=== PATIENT | male | born 1965 | race African-American/Black ===

== ENCOUNTER 2020-01-04 10:30 | Emergency (ER) | payer BC ==
[~2020-01-04] VITALS: Ht 177.8 cm; Wt 72.2 kg
[2020-01-04 11:20] LABS: CHLORIDE 112 mmol/L (98-107); MEAN CORPUSCULAR HEMOGLOBIN 32.9 pg (27.5-34.5); MEAN CORPUSCULAR HGB CONC 33.8 g/dL (33.2-36.2); MEAN CORPUSCULAR VOLUME 97.3 fL (81-97); MEAN PLATELET VOLUME 7.3 fL (7.4-10.4); PLATELET COUNT 297 x10^3/uL (130-400); RED BLOOD COUNT 4.53 x10^6/uL (4.38-5.82); RED CELL DISTRIBUTION WIDTH 13.9 % (9.4-14.8)
--- NOTE | 2020-01-04 11:22 | NUR ---
[employer]: PT WALKED FROM LOBBY TO ROOM AT THIS TIME.
--- NOTE | 2020-01-04 11:28 | NUR ---
FIRST CONTACT WITH PT. PT C/O: SEEN AT FOR LEFT FLANK PAIN, PT HAD LAB WORK YESTERDAY. LEFT FLANK PAIN CONSTANT FOR 3 WEEKS. PT DENIES URINARY SYMPTOMS. PT DENIES RADIATION. PT DENIES CONSTIPATION OR DIARRHEA. PT STATES LAYING DOWN MAKES PAIN WORSE. PT'S AOX4. RESPS EVEN AND UNLABORED. BP/SPO2 MONITORS IN PLACE. CALL LIGHT WITHIN REACH.
[2020-01-04 11:39] LABS: ALANINE AMINOTRANSFERASE 18 U/L (12-78); ALBUMIN 3.7 g/dL (3.4-5.0); ANION GAP 7 mmol/L (5-15); CALCIUM 8.3 mg/dL (8.5-10.1); CREATININE 1.46 mg/dL (0.7-1.3)
[2020-01-04 11:41] LABS: ALKALINE PHOSPHATASE 65 U/L (45-117); TOTAL PROTEIN 6.9 g/dL (6.4-8.2)
[2020-01-04 11:44] LABS: MD YES
--- NOTE | 2020-01-04 11:47 | NUR ---
pt amb to br and back to room with steady gait. ua sent.
[2020-01-04] MEDS ORDERED: KETOROLAC 30 MG/1 ML ONE (11:54)
[2020-01-04] MEDS ORDERED: KETOROLAC 30 MG/1 ML IM ONE (12:00)
--- NOTE | 2020-01-04 12:01 | NUR ---
Pt medicated for pain.
[2020-01-04 12:02] LABS: MICROSCOPIC NOT IND
[2020-01-04 12:11] LABS: EOS#(MANUAL) 0.26 x10^3/uL (0.0-0.4); EOS% (MANUAL) 4 % (1-7); LYMPH#(MANUAL) 3.19 x10^3/uL (1-3.4); LYMPHS% (MANUAL) 49 % (22-44); MONOS#(MANUAL) 0.46 x10^3/uL (0.3-2.7); MONOS% (MANUAL) 7 % (2-9); REACTIVE LYMPHS # (MANUAL) 0.13 x10^3/uL (0-0); REACTIVE LYMPHS % (MANUAL) 2 % (0-0); SEG#(MANUAL) 2.47 x10^3/uL (1.8-6.8); SEGS% (MANUAL) 38 % (42-75)
[2020-01-04 12:12] LABS: <PLATELET ESTIMATE> ADEQUATE; <PLT MORPHOLOGY> NORMAL PLT MORPH; <RBC MORPHOLOGY> NORMAL
[2020-01-04 12:14] LABS: CULTURE INDICATED? NO
[2020-01-04 12:59] VITALS: BP 140/77
--- NOTE | 2020-01-04 13:02 | NUR ---
PT RESTING IN [facility]. PT'S AOX4. RESPS EVEN AND UNLABORED.
--- NOTE | 2020-01-04 13:43 | NUR ---
Patient given discharge instructions and they have confirmed that they understand the instructions. Patient ambulatory with steady gait.
== END 2020-01-04 13:44 | disposition home or self-care (01) ==
LOC: ED 13:13
DX: M54.5 Low back pain (principal); F17.200 Nicotine dependence, unspecified, uncomplicated; R10.9 Unspecified abdominal pain
CPT/HCPCS: 36415; 74176; 80053; 81003; 85025; 96372; 99284; J1885

== ENCOUNTER 2021-04-03 21:35 | Emergency (ER) | payer BC ==
[~2021-04-03] VITALS: Ht 177.8 cm; Wt 80.7 kg
[2021-04-03 21:45] VITALS: BP 145/82
[2021-04-03] MEDS ORDERED: PROCHLORPERAZINE 5 MG/ML, 2ML ONE (22:12)
[2021-04-03] MEDS ORDERED: KETOROLAC 30 MG/1 ML ONE (22:13)
--- NOTE | 2021-04-03 22:22 | NUR ---
CHEST PAIN AND YANEZ. CHEST PAIN RADIATES TO LEFT ARM AND CAUSES TINGLING, STARTED AT WORK TODAY WHILE SITTING. NO CARDIAC HX. YANEZ PRESENT [id number]
[2021-04-03] MEDS ORDERED: PROCHLORPERAZINE 5 MG/ML, 2ML IM ONE (22:30)
[2021-04-03] MEDS ORDERED: KETOROLAC 30 MG/1 ML IM ONE (22:30)
[2021-04-03 22:33] LABS: BASOPHILS % (AUTO) 1 % (0-1); EOSINOPHILS % (AUTO) 1 % (1-7); LYMPHOCYTES % (AUTO) 49 % (22-44); MEAN CORPUSCULAR HEMOGLOBIN 32.5 pg (27.5-34.5); MEAN CORPUSCULAR HGB CONC 34.1 g/dL (33.2-36.2); MEAN PLATELET VOLUME 7.1 fL (7.4-10.4); MONOCYTES % (AUTO) 7 % (2-9); NEUTROPHILS % (AUTO) 42 % (42-75); PLATELET COUNT 297 x10^3/uL (130-400); RED BLOOD COUNT 4.43 x10^6/uL (4.38-5.82); RED CELL DISTRIBUTION WIDTH 13.5 % (9.4-14.8)
[2021-04-03 22:43] LABS: ALBUMIN 3.9 g/dL (3.4-5.0); ANION GAP 6 mmol/L (5-15); CALCIUM 8.6 mg/dL (8.5-10.1); CHLORIDE 109 mmol/L (98-107); CREATININE 1.23 mg/dL (0.7-1.3)
[2021-04-03 22:47] LABS: TROPONIN I < 0.015 ng/mL (0.000-0.045)
== END 2021-04-03 23:45 | disposition home or self-care (01) ==
LOC: ED 23:24
DX: R07.89 Other chest pain (principal); G44.211 Episodic tension-type headache, intractable; F17.210 Nicotine dependence, cigarettes, uncomplicated
CPT/HCPCS: 36415; 71045; 80048; 82040; 84484; 85025; 93005; 96372; 99285; 99406; J0780; J1885